=== PATIENT | male | born 1995 | race Caucasian/White ===

== ENCOUNTER 2022-04-19 14:04 | Emergency (ER) | payer OTHER ==
[~2022-04-19] VITALS: Ht 167.6 cm; Wt 68.0 kg
[2022-04-19 14:20] VITALS: BP_SYST 132
== END 2022-04-19 16:20 | disposition left against medical advice (07) ==
LOC: SED 14:04
DX: R07.2 Precordial pain (principal); R06.02 Shortness of breath; Z53.21 Procedure and treatment not carried out due to patient leaving prior to being seen by health care provider
CPT/HCPCS: 71045; 93005